=== PATIENT | female | born 1990 | race Caucasian/White ===

== ENCOUNTER 2019-09-27 04:53 | Inpatient (IN) ==
--- OUTSIDE RECORDS SUMMARY | 2019-09-27 04:59 | External Medical Summary | Continuity of Care Document ---
:1990 Author Name Aydin Amin Address Unavailable Unavailable , Care Team Providers Name Role Phone Unavailable Unavailable Unavailable GENI Amin, S Unavailable Unavailable Unavailable Unavailable Unavailable Problems Vaginitis (616.10) (N76.0) Allergies and Adverse Reactions No Known Drug Allergies (Allergy) Medications No Reported Medications , M.D. Refills: 0 Procedures History of Tonsillectomy Status: Complet ed Immunizations Immunizations not documented Social History - Smoking Status Never smoker Plan of Treatment Planned Observations Planned Goals not documented Results No Known Results Results not documented
[2019-09-27] MEDS ORDERED: OXYTOCIN 30 UNITS/500 ML BAG IV PRN ×2 (05:10→16:55)
[2019-09-27] MEDS ORDERED: PENICILLIN G POTASSIUM 6 MU in DEXTROSE 5% 250 ML IV STA (05:10)
[2019-09-27 05:42] LABS: Hemoglobin 12.1 g/dL (12.0-16.0); Mean Corpuscular Hemoglobin 26.7 pg (25-34); Mean Corpuscular Volume 79.3 fL (80-100); Mean Platelet Volume 11.5 fL (7.4-10.4); Platelet Count 204 K/uL (130-400); RDW Standard Deviation 39.9 fL (36.4-46.3); Red Blood Count 4.54 M/uL (4.2-5.4)
[2019-09-27 05:46] LABS: Mean Corpuscular Hgb Conc 33.6 g/dL (32-36)
[2019-09-27] MEDS: LACTATED RINGER'S 1,000 ML IV PRN ×3 (05:58→13:05)
[2019-09-27] MEDS ORDERED: BUPIVACAINE 0.25% 30 ML VIAL ONE (06:20)
[2019-09-27] MEDS ORDERED: ePHEDrine sulfate 50 MG/ML AMP ONE (06:20)
[2019-09-27] MEDS ORDERED: fentaNYL citrate 100 MCG/2 ML VIAL ONE (06:20)
[2019-09-27] MEDS ORDERED: fentaNYL 2MCG/ML ROPIV 1.25MG/ML 100 ML BAG EPI ONE (06:21)
--- NOTE | 2019-09-27 06:27 | Obstetrical Progress Note ---
Date of Service September 27, 2019 Physical Exam Physical Exam: Admit Note 29 F P1001 at 40.6 weeks admitted in active labor. SROM clear fluid this AM. Cervix 5/80/-2/vertex. GBS is positive. Patient requesting epidural Results & Data Vital Signs (Past 12 Hours) Vital Signs Temp Pulse Resp BP 09/27/19 05:16 36.6 C 100 H 18 133/73 09/27/19 05:04 100 H 133/73
--- NOTE | 2019-09-27 06:40 | Anesthesiology Consultation ---
Date of Service September 27, 2019 Assessment & Plan Chart Review Chart Review: Acceptable Risk for Labor Epidural ASA ASA2 Proposed Anesthesia Anesthesia Type: Labor Epidural Risk / Benefits Reviewed With: PT / POA / Parent / Guardian, Accepts Plan and Informed Consent Obtained History Height/Weight Height: 4 ft 11 in Weight: 89.811 kg Allergies Allergy/AdvReac Type Severity Reaction Status Date / Time No Known Allergies Allergy Verified 09/27/19 05:12 Medications Home Medications Medication Instructions Recorded Confirmed Last Taken PNV cmb#95-ferrous fumarate-FA 1 tab PO DAILY #0 tab 11/09/13 09/27/19 09/26/19 10:00 [] Active Medications Generic Name Dose Route Start Last Admin Trade Name Freq PRN Reason Stop Dose Admin Lactated Ringer's 1,000 mls @ 125 mls/hr 09/27/19 05:10 09/27/19 07:05 Lr IV 09/29/19 05:09 125 mls/hr .Q8H PRN Administration L&D Protocol Protocol Past Surgical History Surgical History History of tonsillectomy 1997 [place] teeth extracted 2009 Social History Smoking Status: Former smoker tobacco type: cigarettes Do You Dip or Chew Tobacco: No Smoking End Date: 1.5 years ago Hx Alcohol Use: No Hx Substance Use: No substance use type: does not use Review of Systems denies fever/cough/ colds/ chest pain/ SOB/ GONZALES denies WA/CVA/Seizure Physical Exam Vital Signs Last Vital Signs Temp 36.6 C 09/27/19 05:16 Pulse 114 H 09/27/19 07:06 Resp 18 09/27/19 05:16 BP 129/70 09/27/19 07:06 Pulse Ox 100 09/27/19 07:04 Testing Laboratory Results 09/27/19 05:29
[2019-09-27] MEDS ORDERED: NALOXONE HCL 0.4 MG/1 ML VIAL/CARP IV PRN (07:15)
[2019-09-27] MEDS ORDERED: NALBUPHINE HCL INJ 10 MG/ML AMP IV PRN (07:15)
[2019-09-27] MEDS ORDERED: DiphenhydrAMINE HCL 50 MG/ML VIAL IV PRN (07:15)
[2019-09-27] MEDS ORDERED: ePHEDrine sulfate 50 MG/ML AMP IV PRN (07:15)
[2019-09-27] MEDS ORDERED: ONDANSETRON INJ 2 MG/ML 2 ML VIAL IV PRN (07:15)
[2019-09-27] MEDS ORDERED: fentaNYL 2MCG/ML ROPIV 1.25MG/ML 100 ML BAG EPI PRN (07:15)
[2019-09-27] MEDS ORDERED: NALOXONE HCL 1 MG in SODIUM CHLORIDE 0.9% 1000ML 1,000 ML IV PRN (07:15)
[2019-09-27] MEDS: PENICILLIN G POTASSIUM 3 MU in DEXTROSE 5% 100 ML IV SCH ×2 (10:00→13:36)
[2019-09-27] MEDS ORDERED: METHYLERGONOVINE MALEATE 0.2 MG/ML AMP ONE (16:48)
[2019-09-27] MEDS ORDERED: miSOPROStoL 200 MCG TAB ONE (16:49)
[2019-09-27] MEDS ORDERED: BENZOCAINE 20% AER SPR 82.5 GM CAN EXT PRN (16:55)
[2019-09-27] MEDS ORDERED: bisacodyL 10 MG SUPP PR PRN (16:55)
[2019-09-27] MEDS ORDERED: ACETAMINOPHEN 325 MG TAB PO PRN (16:55)
[2019-09-27] MEDS ORDERED: miSOPROStoL 200 MCG TAB PR ONE (16:55)
[2019-09-27] MEDS ORDERED: HYDROCORTISONE ACETATE 25 MG SUPP PR PRN (16:55)
[2019-09-27] MEDS ORDERED: SUPERCREAM 0.870% 15 GM JAR EXT PRN (16:55)
[2019-09-27] MEDS ORDERED: METHYLERGONOVINE MALEATE 0.2 MG/ML AMP IM ONE (16:55)
[2019-09-27] MEDS ORDERED: DIPHTHERIA/TETANUS/PERTUSSIS 0.5 ML SYR/VIAL IM ONE (16:55)
--- NOTE | 2019-09-27 16:59 | Obstetrical Progress Note ---
Date of Service September 27, 2019 Subjective Delivery Note dictated Results & Data Vital Signs (Past 12 Hours) Vital Signs Temp Pulse Resp BP Pulse Ox 09/27/19 16:57 108 H 97 09/27/19 16:54 100 H 130/63 09/27/19 16:45 120 H 131/61 09/27/19 16:44 122 H 92 09/27/19 16:39 122 H 99 09/27/19 16:34 155 H 73 L 09/27/19 16:30 159 H 91 09/27/19 16:29 168 H 98 09/27/19 16:25 154 H 87 L 09/27/19 16:24 160 H 98 09/27/19 16:19 142 H 84 L 09/27/19 16:14 154 H 97 09/27/19 16:11 137 H 137/81 09/27/19 16:09 154 H 97 09/27/19 16:06 155 H 94 09/27/19 16:04 140 H 96 09/27/19 16:00 37.5 C 167 H 20 93 09/27/19 15:59 143 H 95 09/27/19 15:58 142 H 141/86 H 09/27/19 15:55 141 H 92 09/27/19 15:54 141 H 96 09/27/19 15:49 158 H 97 09/27/19 15:48 151 H 93 09/27/19 15:44 149 H 97 09/27/19 15:43 130 H 130/78 93 09/27/19 15:39 161 H 96 09/27/19 15:38 146 H 94 09/27/19 15:34 141 H 96 09/27/19 15:30 20 09/27/19 15:29 131 H 97 09/27/19 15:27 134 H 114/56 L 09/27/19 15:24 124 H 96 09/27/19 15:20 152 H 93 09/27/19 15:19 134 H 97 09/27/19 15:14 138 H 98 09/27/19 15:12 131 H 144/82 H 09/27/19 15:09 143 H 97 09/27/19 15:04 126 H 98 09/27/19 15:00 20 09/27/19 14:59 163 H 98 09/27/19 14:56 141 H 124/58 L 09/27/19 14:54 157 H 96 09/27/19 14:49 135 H 97 09/27/19 14:44 127 H 97 09/27/19 14:42 134 H 127/64 09/27/19 14:39 121 H 97 09/27/19 14:34 114 H 97 09/27/19 14:30 37.3 C 20 09/27/19 14:29 116 H 98 09/27/19 14:28 127 H 126/59 L 09/27/19 14:24 147 H 97 09/27/19 14:19 124 H 96 09/27/19 14:14 119 H 98 09/27/19 14:11 130 H 133/68 09/27/19 14:09 143 H 98 09/27/19 14:04 130 H 98 09/27/19 14:00 20 09/27/19 13:59 116 H 99 09/27/19 13:56 123 H 134/68 09/27/19 13:54 123 H 100 09/27/19 13:49 134 H 98 09/27/19 13:44 124 H 99 09/27/19 13:42 118 H 128/65 09/27/19 13:39 120 H 98 09/27/19 13:34 125 H 99 09/27/19 13:30 37.6 C H 20 09/27/19 13:29 127 H 100 09/27/19 13:27 134 H 128/69 09/27/19 13:24 145 H 100 09/27/19 13:19 127 H 100 09/27/19 13:14 114 H 99 09/27/19 13:13 115 H 125/63 09/27/19 13:09 131 H 100 09/27/19 13:04 128 H 100 09/27/19 13:00 20 09/27/19 12:59 139 H 100 09/27/19 12:58 136 H 127/60 09/27/19 12:55 132 H 94 09/27/19 12:54 131 H 98 09/27/19 12:49 132 H 99 09/27/19 12:44 136 H 100 09/27/19 12:42 139 H 109/59 L 09/27/19 12:39 140 H 100 09/27/19 12:34 162 H 100 09/27/19 12:30 37.2 C 20 09/27/19 12:29 184 H 100 09/27/19 12:26 122 H 127/69 09/27/19 12:24 124 H 100 09/27/19 12:19 122 H 100 09/27/19 12:14 109 H 127/66 100 09/27/19 12:09 126 H 100 09/27/19 12:04 114 H 100 09/27/19 12:00 18 09/27/19 11:59 113 H 100 09/27/19 11:58 121 H 119/71 09/27/19 11:54 113 H 99 09/27/19 11:49 124 H 100 09/27/19 11:44 116 H 100 09/27/19 11:41 123 H 128/66 09/27/19 11:39 134 H 100 09/27/19 11:34 113 H 100 09/27/19 11:30 20 09/27/19 11:29 115 H 100 09/27/19 11:26 112 H 125/72 09/27/19 11:24 120 H 100 09/27/19 11:19 125 H 100 09/27/19 11:16 112 H 123/72 09/27/19 11:14 109 H 125/71 100 09/27/19 11:09 118 H 100 09/27/19 11:04 116 H 100 09/27/19 11:00 37.2 C 09/27/19 10:59 112 H 100 09/27/19 10:57 120 H 132/60 09/27/19 10:54 115 H 100 09/27/19 10:49 121 H 100 09/27/19 10:44 136 H 100 09/27/19 10:41 112 H 130/74 09/27/19 10:39 117 H 100 09/27/19 10:38 111 H 90 09/27/19 10:34 122 H 100 09/27/19 10:30 09/27/19 10:29 125 H 100 09/27/19 10:26 122 H 128/65 09/27/19 10:24 134 H 100 09/27/19 10:19 137 H 99 09/27/19 10:14 130 H 100 09/27/19 10:12 131 H 141/66 H 01/09/20 10:09 124 H 99 09/27/19 10:04 119 H 100 09/27/19 10:00 20 09/27/19 09:59 118 H 99 09/27/19 09:57 122 H 114/72 09/27/19 09:54 123 H 99 09/27/19 09:49 114 H 99 09/27/19 09:44 106 H 99 09/27/19 09:42 105 H 107/61 09/27/19 09:39 94 H 99 09/27/19 09:34 94 H 100 09/27/19 09:30 20 09/27/19 09:29 101 H 99 09/27/19 09:27 95 H 107/55 L 92 09/27/19 09:24 101 H 99 09/27/19 09:19 100 H 100 09/27/19 09:14 107 H 99 09/27/19 09:13 109 H 102/59 L 91 09/27/19 09:09 109 H 100 09/27/19 09:04 112 H 100 09/27/19 09:00 37.2 C 20 09/27/19 08:59 117 H 100 09/27/19 08:57 102 H 121/69 09/27/19 08:54 103 H 100 09/27/19 08:49 102 H 100 09/27/19 08:47 101 H 85 L 09/27/19 08:44 96 H 100 09/27/19 08:41 123 H 113/74 09/27/19 08:39 100 H 100 09/27/19 08:34 124 H 100 09/27/19 08:30 18 09/27/19 08:29 125 H 100 09/27/19 08:28 114 H 112/69 09/27/19 08:26 106 H 89 L 09/27/19 08:24 126 H 100 09/27/19 08:19 121 H 100 09/27/19 08:14 140 H 100 09/27/19 08:11 136 H 107/71 09/27/19 08:09 122 H 100 09/27/19 08:04 108 H 100 09/27/19 07:59 109 H 100 09/27/19 07:57 139 H 110/68 09/27/19 07:54 138 H 100 09/27/19 07:49 110 H 100 09/27/19 07:44 123 H 100 09/27/19 07:41 120 H 117/62 09/27/19 07:39 126 H 100 09/27/19 07:37 130 H 134/76 09/27/19 07:34 128 H 100 09/27/19 07:31 148 H 118/65 09/27/19 07:30 20 09/27/19 07:29 128 H 100 09/27/19 07:28 120 H 126/74 09/27/19 07:24 117 H 100 09/27/19 07:22 133 H 119/67 09/27/19 07:20 36.9 C 20 09/27/19 07:19 130 H 100 09/27/19 07:17 113 H 119/71 09/27/19 07:14 115 H 100 09/27/19 07:12 105 H 121/62 09/27/19 07:09 122 H 100 09/27/19 07:06 114 H 129/70 09/27/19 07:04 122 H 121/70 100 09/27/19 07:02 134 H 125/77 09/27/19 07:00 120 H 124/71 09/27/19 06:59 121 H 100 09/27/19 06:57 120 H 132/81 09/27/19 06:54 120 H 90 09/27/19 06:49 125 H 77 L 09/27/19 05:16 36.6 C 100 H 18 133/73 09/27/19 05:04 100 H 133/73
--- NOTE | 2019-09-27 18:53 | Anesthesia Procedure Note ---
Date of Service September 27, 2019 Anesthesia Post Epidural Note Vital Signs Vital Signs: Temp Pulse Resp BP Pulse Ox 37.6 C H 85 20 138/65 84 L 09/27/19 16:54 09/27/19 18:39 09/27/19 18:24 09/27/19 18:39 09/27/19 17:28 Pain Intensity Abdomen: Pain Intensity: 2 Notes Mental Status: alert / awake / arousable and participated in evaluation Patient Amnestic to Procedure: Yes Nausea / Vomiting: adequately controlled Pain: adequately controlled Airway Patency, RR, SpO2: stable & adequate BP & HR: stable & adequate Hydration State: stable & adequate Anesthetic Complications: no major complications apparent and Pt Satisfied with anesthetic care
[2019-09-27] MEDS ORDERED: DOCUSATE SODIUM 100 MG CAP PO SCH (21:00)
--- NOTE | 2019-09-28 02:36 | Delivery Summary ---
DATE OF OPERATION: 09/27/2019 DELIVERY NOTE The patient delivered a live in left occiput anterior presentation. There was no nuchal cord. was delivered, placed on mother's abdomen. Cord was clamped and cut after 1 minute. Cord blood was obtained. There was terminal meconium. Placenta spontaneously delivered. Inspection of the perineum showed bilateral labial edema, no laceration or tears are noted. ESTIMATED BLOOD LOSS: 400. All instruments were removed from the vagina including retractors, and sponges were accounted for x2. The patient is stable in recovery. I attest to the content of the Intraoperative Record and any orders documented therein. Any exception s are noted below.
[2019-09-28] MEDS: IBUPROFEN 600 MG TAB PO PRN ×3 (07:28→15:25)
[2019-09-28 07:29] LABS: Hematocrit (blood only) 32.8 % (37-47); Hemoglobin 10.8 g/dL (12.0-16.0); Mean Corpuscular Hemoglobin 26.3 pg (25-34); Mean Corpuscular Hgb Conc 32.9 g/dL (32-36); Mean Corpuscular Volume 79.8 fL (80-100); Platelet Count 182 K/uL (130-400); RDW Coefficient of Variation 14.4 % (11.5-14.5); RDW Standard Deviation 41.4 fL (36.4-46.3); Red Blood Count 4.11 M/uL (4.2-5.4); White Blood Count 18.89 K/uL (4.8-10.8)
[2019-09-28] MEDS ORDERED: FERROUS SULFATE 325 MG TAB PO SCH (08:00)
[2019-09-28] MEDS ORDERED: PRENATAL VITAMIN 1 TAB PO SCH (08:00)
--- NOTE | 2019-09-28 10:37 | Obstetrical Progress Note ---
Date of Service September 28, 2019 Subjective doing well passing gas tolerating diet Physical Exam Constitutional: WD/WN, vitals as above comfortable abdomen soft non- tender fundus firm no edema neg Papo's for discharge Results & Data Vital Signs (Past 12 Hours) Vital Signs Temp Pulse Resp BP BP Pulse Ox 09/28/19 05:45 117/73 09/28/19 04:20 36.7 C 67 18 84/50 L 97 09/27/19 23:15 36.7 C 67 18 119/76 97 Laboratory Results Laboratory Results - last 48 hr 09/27/19 09/28/19 05:29 07:19 WBC 14.00 H 18.89 H RBC 4.54 4.11 L Hgb 12.1 10.8 L Hct 36.0 L 32.8 L MCV 79.3 L 79.8 L MCH 26.7 26.3 MCHC 33.6 32.9 RDW Std Deviation 39.9 41.4 RDW Coeff of Elly 14.0 14.4 Plt Count 204 182 MPV 11.5 H 11.0 H
[2019-09-28] MEDS ORDERED: bisacodyL 5 MG TABEC PO SCH (20:00)
== END 2019-09-28 18:15 | disposition home or self-care (01) | DRG 807 ==
LOC: OPB 04:53 → 4S1 04:55 → 4S2 20:00

== ENCOUNTER 2021-03-11 23:55 | Observation (INO) ==
[2021-03-12] MEDS ORDERED: SODIUM CHLORIDE 0.9% 1000ML 1,000 ML IV ONE (00:08)
[2021-03-12] MEDS ORDERED: MoRPHine SULFATE 10 MG/ML CARP/VIAL IV STA (00:08)
[2021-03-12] MEDS ORDERED: ONDANSETRON INJ 2 MG/ML 2 ML VIAL IV STA (00:08)
--- NOTE | 2021-03-12 00:12 | Emergency Department Note ---
Impression & Plan Acute cholecystitis ED Provider Note Name: LIZZIE DOW Age: 30 Sex: F Arrives Via: Walk-In Informant: Patient ED Provider: Gavin Roberson MD Chief Complaint: Epigastric Pain Impression: Acute Cholecystitis Medical Decision Makin yr old healthy female with 12 hours acute epigastric pain radiating RUQ and some to back. Labs with mild WBC elevation otherwise OK. US obtained which reveals gallstones in neck with mildly distended gallbladder. No edema though despite feeling much better with morphine, she still has considerable TTP. Consistent with early cholecystitis and gen surg consulted who will admit and likely OR later today. pre-op and abx by surg team. Patient comfortable and agrees with plan. Symptoms are not consistent with ACS, PE, Dissection, nor does she have overt peritonitis on abdominal exam at this time. Of note, patient with positive covid pcr test. She is asymptomatic for covid. Her had covid in October at which time she did test negative, but it would be reasonable assume she was infected at that point. Will continue with covid precautions. Prior Medical Record and Triage/Nursing Notes reviewed by Me Differentials:Cholecystitis, Obstructing bile stone, liver pathology, thromb osis, renal colic, pud/gastritis, acs, aortic pathology, pe amongst other pathologies. Vital Signs: reviewed and remarkable for no significant abnormalities Interventions: saline lock, nss bolus, morphine 6mg iv, zofran 4mg iv Labs:Reviewed and remarkable for mild wbc elevation Imaging: [facility] Radiologist interpretation reviewed by me: "US RUQ: Few stones within the gallbladder neck. Gallbladder mildly distended. No wall thickening or pericholecystic fluid. Negative sonographic Anand sign. No biliary dilatation. Small cyst within the left hepatic lobe measuring 1.3 cm. Right kidney unremarkable. Radiologist: Gerry Jageer MD" Consults:Isidro Connolly PA-C Plan: Disposition:Hospitalization. Condition: Good History of Present Illness:30 yr old female arrives for evaluation of epigastric pain. Patient notes rapidly worsening epigastric pain since eating a chicken wrap for lunch. Worsening pain and nausea. No vomiting. Radiation to RUQ and mild posterior back discomfort. No fevers, chills, syncope, headache, cp, sob, leg swelling, rashes, urinary/bowel changes, nor other symptoms. No tr auma/injury. Eating makes worse, rest makes better. Motrin previously without improvement though no medications prior to arrival. She notes that she has had periodic episodes like this that resolve on their own without previous medical work up for it. No previous abdominal surgeries. No fam history GB disease. ROS: See above HPI for pertinent positives & negatives. A total of 10 systems reviewed and were otherwise negative. Past Medical History:None Past Surgical History:tonsillectomy, wisdom teeth Family History:Healthy Social History: with 2 children, no drugs/tobacco Home Medications:None Allergies:NKDA Vitals:Blood Pressure: 123/74, Pulse 86, RR 16, T 36.6C, O2 94% on RA Physical Exam: GENERAL: Patient is anxious appearing and in moderate distress. EYES: No scleral icterus, unremarkable pupils. ENT: Mucous membranes moist, no nasal congestion. NECK: No masses appreciated, nomeningismus, trachea is midline. RESPIRATORY: No dyspnea. Clear to auscultation and equal bilaterally. No wheeze, no rhonchi. CARDIOVASCULAR: Regular rate and rhythm.No murmurs, rubs, gallops appreciated. GASTROINTESTINAL: Epigastric and RUQ TTP, otherwise abdomen soft, non-tender, no peritonitis.Bowel sounds positive.No masses appreciated. BACK: No midline tenderness, no CVA tenderness EXTREMITIES: Normal motion all extremities, no cyanosis, no edema. NEUROLOGIC: Alert and oriented, no acute motor or sensory deficits, no focal weakness, cranial nerves grossly intact. SKIN: No rash, no jaundice, no diaphoresis. PSYCH: Appropriate GCS: 15 ED Course: Times/Reassessments: stable, feeling better though still with TTP epigastrium Gavin Roberson MD Past Med/Surg History Surgical History History of tonsillectomy 1997 [place] teeth extracted 2009 Social History Smoking Status: Never smoker Second Hand Exposure: No; Hx Alcohol Use: No Hx Substance Use: No Preferred Language: Malian Communication Ability: Effective [employer] Required: No Beliefs That Will Affect Care: None marital status: Current Living Situation: Spouse and Family Feels Safe at Home: Yes Assistive Devices: None Allergies Allergies Allergy/AdvReac Type Severity Reaction Status Date / Time No Known Allergies Allergy Verified 03/12/21 00:04 Home Meds Home Medications Medication Instructions Recorded Confirmed No Known Home Medications 03/12/21 03/12/21 Results & Data (ED) Vital Signs Vital Signs - 24 hr 03/11/21 23:58 03/12/21 01:45 03/12/21 03:00 Temperature 36.6 C Temperature Source Temporal Artery Scan Pulse Rate 86 Pulse Rate [Right Finger] 68 68 Respiratory Rate 16 18 18 Blood Pressure 123/74 Blood Pressure [Right Arm] 112/58 L 100/64 Blood Pressure Mean 90 Blood Pressure Mean [Right Arm] 76 76 Pulse Oximetry 94 97 97 Oxygen Delivery Method Room Air Sepsis Recent Fever Within 48 Hours No Sepsis New/Unexplained Change in Mental Status No Sepsis Action Taken by Nursing No Action Required 03/12/21 05:00 Temperature Temperature Source Pulse Rate Pulse Rate [Right Finger] 70 Respiratory Rate 18 Blood Pressure Blood Pressure [Right Arm] 98/68 L Blood Pressure Mean Blood Pressure Mean [Right Arm] 78 Pulse Oximetry 97 Oxygen Delivery Method Room Air Sepsis Recent Fever Within 48 Hours Sepsis New/Unexplained Change in Mental Status Sepsis Action Taken by Nursing Laboratory Data Result diagrams: 03/12/21 00:24 03/12/21 00:24 Lab Results 03/12/21 03/12/21 03/12/21 Range/Units 00:20 00:20 00:24 WBC (4.8-10.8) K/uL RBC (4.2-5.4) M/uL Hgb (12.0-16.0) g/dL Hct (37-47) % MCV (80-100) fL MCH (25-34) pg MCHC (32-36) g/dL RDW Std Deviation (36.4-46.3) fL RDW Coeff of Elly (11.5-14.5) % Plt Count (130-400) K/uL MPV (7.4-10.4) fL Immature Gran % (Auto) % Neut % (Auto) % Lymph % (Auto) % [place] % (Auto) % Eos % (Auto) % Baso % (Auto) % Neut # (Auto) (1.4-6.5) K/uL Lymph # (Auto) (1.2-3.4) K/uL [place] # (Auto) (0.11-0.59) K/uL Eos # (Auto) (0-0.5) K/uL Baso # (Auto) (0-0.2) K/uL Immature Gran # (Auto) (0.00-0.02) K/uL Sodium 141 (136-145) mmol/L Potassium 3.8 (3.5-5.1) mmol/L Chloride 109 H (98-107) mmol/L Carbon Dioxide 28 (21-32) mmol/L Anion Gap 4.0 (3-11) BUN 8 (7-18) mg/dl Creatinine 0.83 (0.6-1.2) mg/dl Est Cr Clr Drug Dosing 92.7 ml/min Est GFR ( Amer) 111.2 ml/min Est GFR (Non-Af Amer) 96.0 ml/min BUN/Creatinine Ratio 9.0 L (10-20) Glucose 89 (70-99) mg/dl Calcium 8.5 (8.5-10.1) mg/dl Total Bilirubin 0.3 (0.2-1) mg/dl Direct Bilirubin 0.1 (0-0.2) mg/dl AST 11 L (15-37) U/L ALT 22 (12-78) U/L Alkaline Phosphatase 66 (45-117) U/L Total Protein 7.6 (6.4-8.2) gm/dl Albumin 4.2 (3.4-5.0) gm/dl Lipase 257 (73-393) U/L Urine Color Yellow Urine Appearance Clear (Clear) Urine pH 7.5 (4.5-7.5) Ur Specific [place] 1.012 (1.000-1.030) Urine Protein Negative (Negative) Urine Glucose (UA) Negative (Negative) Urine Ketones Trace H (Negative) Urine Blood Negative (Negative) Urine Nitrite Negative (Negative) Urine Bilirubin Negative (Negative) Urine Urobilinogen Negative (Negative) Ur Leukocyte Esterase 1+ H (Negative) Urine WBC (Auto) 10-30 H (0-5) /hpf Urine RBC (Auto) 0-4 (0-4) /hpf U Hyaline Cast (Auto) 1-5 (0-5) /lpf U Epithel Cells (Auto) >30 H (0-5) /lpf Urine Bacteria (Auto) 1+ H (Negative) Urine Test Negative (Negative) COVID-19 Eval Order SARS-CoV-2 (PCR) (Negative) 03/12/21 03/12/21 03/12/21 Range/Units 00:24 03:00 03:00 WBC 12.08 H (4.8-10.8) K/uL RBC 5.10 (4.2-5.4) M/uL Hgb 14.7 (12.0-16.0) g/dL Hct 42.6 (37-47) % MCV 83.5 (80-100) fL MCH 28.8 (25-34) pg MCHC 34.5 (32-36) g/dL RDW Std Deviation 40.8 (36.4-46.3) fL RDW Coeff of Elly 13.4 (11.5-14.5) % Plt Count 264 (130-400) K/uL MPV 9.9 (7.4-10.4) fL Immature Gran % (Auto) 0.2 % Neut % (Auto) 66.3 % Lymph % (Auto) 24.9 % [place] % (Auto) 5.9 % Eos % (Auto) 2.5 % Baso % (Auto) 0.2 % Neut # (Auto) 8.00 H (1.4-6.5) K/uL Lymph # (Auto) 3.01 (1.2-3.4) K/uL [place] # (Auto) 0.71 H (0.11-0.59) K/uL Eos # (Auto) 0.30 (0-0.5) K/uL Baso # (Auto) 0.03 (0-0.2) K/uL Immature Gran # (Auto) 0.03 H (0.00-0.02) K/uL Sodium (136-145) mmol/L Potassium (3.5-5.1) mmol/L Chloride (98-107) mmol/L Carbon Dioxide (21-32) mmol/L Anion Gap (3-11) BUN (7-18) mg/dl Creatinine (0.6-1.2) mg/dl Est Cr Clr Drug Dosing ml/min Est GFR ( Amer) ml/min Est GFR (Non-Af Amer) ml/min BUN/Creatinine Ratio (10-20) Glucose (70-99) mg/dl Calcium (8.5-10.1) mg/dl Total Bilirubin (0.2-1) mg/dl Direct Bilirubin (0-0.2) mg/dl AST (15-37) U/L ALT (12-78) U/L Alkaline Phosphatase (45-117) U/L Total Protein (6.4-8.2) gm/dl Albumin (3.4-5.0) gm/dl Lipase (73-393) U/L Urine Color Urine Appearance (Clear) Urine pH (4.5-7.5) Ur Specific [place] (1.000-1.030) Urine Protein (Negative) Urine Glucose (UA) (Negative) Urine Ketones (Negative) Urine Blood (Negative) Urine Nitrite (Negative) Urine Bilirubin (Negative) Urine Urobilinogen (Negative) Ur Leukocyte Esterase (Negative) Urine WBC (Auto) (0-5) /hpf Urine RBC (Auto) (0-4) /hpf U Hyaline Cast (Auto) (0-5) /lpf U Epithel Cells (Auto) (0-5) /lpf Urine Bacteria (Auto) (Negative) Urine Test (Negative) COVID-19 Eval Order Covid19 at [facility] SARS-CoV-2 (PCR) POSITIVE A* (Negative) Administered Medications Discontinued Medications Sodium Chloride (Nss 1000ml) 1,000 mls @ 999 mls/hr IV .[id number] ONE Stop: 03/12/21 01:08 Last Infusion: 03/12/21 01:43 Dose: 0 mls/hr Documented by: [id number] Admin: 03/12/21 00:25 Dose: 999 mls/hr Documented by: [id number] Cefoxitin Sodium (Mefoxin) 2,000 mg in 60 mls @ 100 mls/hr IV NOW STA Stop: 03/12/21 03:12 Last Infusion: 03/12/21 04:21 Dose: 0 mls/hr Documented by: [id number] Admin: 03/12/21 03:25 Dose: 100 mls/hr Documented by: [id number] Morphine Sulfate (Morphine Sulfate 10 Mg/Ml Carp/Vial) 6 mg IV NOW STA Stop: 03/12/21 00:09 Last Admin: 03/12/21 00:33 Dose: 6 mg Documented by: [id number] Ondansetron HCl (Ondansetron Inj 2 Mg/Ml 2 Ml Vial) 4 mg IV NOW STA Stop: 03/12/21 00:09 Last Admin: 03/12/21 00:33 Dose: 4 mg Documented by: [id number] Discharge Plan Visit Data Chief Complaint: Abdominal Pain Stated Complaint: SUSPECTED GALBLADDER ATTACK,SEVERE ABD PAIN ED Provider: Gavin Roberson Discharge Problem: Acute cholecystitis Forms Stand Alone Forms: [employer] Prescriptions Prescriptions: No Action No Known Home Medications RF: 0
[2021-03-12 00:35] LABS: Basophils # (auto) 0.03 K/uL (0-0.2); Basophils % (auto) 0.2 %; Eosinophils % (auto) 2.5 %; Hematocrit (blood only) 42.6 % (37-47); Hemoglobin 14.7 g/dL (12.0-16.0); Immature Granulocytes # (auto) 0.03 K/uL (0.00-0.02); Immature Granulocytes % (auto) 0.2 %; Lymphocytes # (auto) 3.01 K/uL (1.2-3.4); Lymphocytes % (auto) 24.9 %; Mean Corpuscular Hemoglobin 28.8 pg (25-34); Mean Corpuscular Hgb Conc 34.5 g/dL (32-36); Mean Corpuscular Volume 83.5 fL (80-100); Mean Platelet Volume 9.9 fL (7.4-10.4); Monocytes # (auto) 0.71 K/uL (0.11-0.59); Monocytes % (auto) 5.9 %; Neutrophils % (auto) 66.3 %; Platelet Count 264 K/uL (130-400); RDW Coefficient of Variation 13.4 % (11.5-14.5); RDW Standard Deviation 40.8 fL (36.4-46.3); White Blood Count 12.08 K/uL (4.8-10.8)
[2021-03-12 00:40] LABS: Appearance Urine Clear (Clear); Bacteria Urine Automated 1+ (Negative); Bilirubin Urine Negative (Negative); Blood Urine Negative (Negative); Color Urine Yellow; Epithelial Cell Urine Auto >30 /lpf (0-5); Glucose Urine UA Negative (Negative); Ketones Urine Trace (Negative); Leukocyte Esterase Urine 1+ (Negative); Nitrite Urine Negative (Negative); Pregnancy Test, Urine Negative (Negative); Protein Urine Negative (Negative); RBC Urine Automated 0-4 /hpf (0-4); Specific Gravity Urine 1.012 (1.000-1.030); Urobilinogen Urine Negative (Negative); pH Urine 7.5 (4.5-7.5)
[2021-03-12 00:53] LABS: Albumin Level 4.2 gm/dl (3.4-5.0); Bilirubin Direct 0.1 mg/dl (0-0.2); Calcium 8.5 mg/dl (8.5-10.1); Creatinine Clr Calc Pharmacy 92.7 ml/min; Est GFR (African American) 111.2 ml/min; Potassium 3.8 mmol/L (3.5-5.1)
[2021-03-12 00:55] LABS: Bilirubin,Total 0.3 mg/dl (0.2-1); Total Protein 7.6 gm/dl (6.4-8.2)
[2021-03-12] MEDS ORDERED: cefOXitin 2,000 MG/60 ML BAG IV STA (02:37)
--- NOTE | 2021-03-12 02:38 | History & Physical Report ---
Date of Service March 12, 2021 Assessment & Plan (1) Cholelithiasis: I suspect the patient's abdominal pain is related to cholelithiasis particularly since by ultrasound several gallstones are noted to be in the gallbladder neck. We will therefore admit to the patient to the hospital and proceed as follows: Provide analgesics Provide antiemetics We will administer antibiotics in the form of Mefoxin Hydration with IV fluids We will keep patient n.p.o. in anticipation for surgery A Covid test will be performed. I have discussed cholecystectomy with the patient and outlined the risks, benefits, and alternatives. She wishes to proceed. Dr. Eulalio Chaves will see the patient later this morning to obtain consent and further discuss surgery. Further recommendations made based on operative findings as well as patient's recovery from surgery SCDs to be utilized for DVT prevention. No chemical means due to anticipated surgery. History of Present Illness Chief Complaint: Cholelithiasis Primary Care Provider: Stoney Coreas This is a 22-year-old female who presented to [facility] emergency department secondary to abdominal pain. Patient notes over the past several weeks she has been having abdominal pain in the epigastric area and right upper quadrant particularly after eating meals. She said that the pain usually self resolves and therefore she did not seek medical attention before today. She did present to the emergency department today as the pain lasted longer and was much more severe with associated nausea vomiting. She denies any fevers, shakes, chills. Patient says she has never had any prior abdominal surgeries. She notes that the pain that does not radiate and she does not know any specific palliative or provocative factors. In the emergency department the patient had labs and imaging which I dependently reviewed. A gallbladder ultrasound showed the patient had several gallstones in the gallbladder neck with a mildly distended gallbladder, although there was no gallbladder wall thickening or pericholecystic fluid. Labs included a CBC where her white blood cell count was elevated at 12,000. Hemoglobin, hematocrit, and platelet count were noted to be within normal range. A chemistry profile showed that her sodium and potassium were normal as were her BUN and creatinine. There were no elevation of her bilirubin or LFTs. Her lipase was noted be normal. Urine test was noted to be negative. A Covid test has been ordered and is pending. Patient did have a urinalysis that showed 10-30 white blood cells per high-power field with 1+ bacteria and 1+ leukocyte esterase. At the time of my interview she is resting in bed in no distress. Allergies Allergy/AdvReac Type Severity Reaction Status Date / Time No Known Allergies Allergy Verified 03/12/21 00:04 Home Medications Medication Instructions Recorded Confirmed Type No Known Home Medications 03/12/21 03/12/21 History Past Med/Surg History Surgical History History of tonsillectomy 1997 [place] teeth extracted 2009 Social History Smoking Status: Current every day smoker Second Hand Exposure: No; Hx Alcohol Use: Yes Alcohol type: beer and wine Hx Substance Use: No Preferred Language: Brazilian Communication Ability: Effective Felt Hat Steamer Required: No Beliefs That Will Affect Care: None marital status: Current Living Situation: Family Other Information That Helps Us Care for You: No Feels Safe at Home: Yes Safety Concerns: Feels Safe At This Time Assistive Devices: None Review of Systems Constitutional: no fever and no chills Eyes: no decreased night vision Ear, Nose, Mouth, Throat: no ear pain Respiratory: no cough and no dyspnea Cardiovascular: no chest pain Gastrointestinal: + abdominal pain, + nausea, + vomiting and + diarrhea/loose stools Genitourinary: no dysuria Musculoskeletal: no back pain Integumentary: no rash Neurologic: no localized weakness Physical Exam 2 Constitutional: well developed and well nourished; no acute distress Eyes: + conjunctival abnormality wears glasses ENMT: Ears: no hearing impairment Neck: trachea midline Respiratory: normal respiratory effort, lungs clear to auscultation Cardiovascular: Rate/Rhythm: regular rate and regular rhythm Gastrointestinal (Abdomen): Abdomen is rotund and soft. There is no rebound tenderness or guarding. The patient did have significant pain with palpation greatest in the right upper quadrant. Anand sign is noted to be positive. Musculoskeletal: no calf tenderness Skin: no rashes, warm and dry Neurologic: moves all extremities Psychiatric: A+Ox3, euthymic affect Results & Data Results & Data ([facility]) Vital Signs (Past 12 Hours) Vital Signs Temp Pulse Pulse Resp BP BP Pulse Ox 03/12/21 01:45 68 18 112/58 L 97 03/11/21 23:58 36.6 C 86 16 123/74 94 Supervising Physician Co-Signing Physician Notes I personally saw and evaluated the patient with Harsh Connolly PA-C and agree with the assessment and plan 30 yo female with acute cholecystitis -Admit to surgery -Keep NPO -To OR for laparoscopic cholecystectomy, possible open, possible IOC -Consent obtained, risks discussed including bleeding, infection, bile leak, ductal injury PG Care Time/CCT Total # of Minutes Spent Total Time Spent with Patient: Total time spent is greater than 50% in coordination of care (as documented) at patient's floor/unit and/or counseling patient: Coding Level of Care Code 54810 OBS Care - Level 3 Diagnoses Cholelithiasis K80.20
[2021-03-12] MEDS ORDERED: ONDANSETRON INJ 2 MG/ML 2 ML VIAL IV PRN ×2 (05:42→14:44)
[2021-03-12] MEDS ORDERED: MoRPHine SULFATE 4 MG/ML 1 ML CARP\\VIAL IV PRN ×2 (05:42→18:23)
[2021-03-12] MEDS ORDERED: ACETAMINOPHEN 1,000 MG/100 ML VIAL IV PRN (05:42)
[2021-03-12] MEDS: LACTATED RINGER'S 1,000 ML IV SCH ×2 (06:15→19:38)
--- NOTE | 2021-03-12 06:58 | Ultrasound Report ---
US gallbladder HISTORY: 30 years-old Female 12 hrs epi/ruq pain s/p eating. Acute right upper quadrant abdominal pa in COMPARISON: CTA of the chest 03/22/2014 TECHNIQUE: Multiple real-time sonographic images of the abdominal right upper quadrant were obtained assessing grayscale appearance and color flow FINDINGS: The visualized pancreas is unremarkable, the tail obscured by bowel gas. 1.3 cm left hepatic lobe cys t. The liver is otherwise unremarkable. Cholelithiasis. Gallbladder is mildly distended measuring up to 10 mm in length. No gallbladder wall thickening or pericholecystic fluid. Negative sonographic Mur phy's sign. Normal common bile duct, 4 mm. Imaged right kidney is unremarkable with mild pelviectasis. IMPRESSION: 1. Mild gallbladder distention with cholelithiasis. There is no gallbladder wall thickening or perich olecystic fluid to suggest acute cholecystitis. 2. No biliary ductal dilation. ACT 112: Negative or not required by law. The above report was generated using voice recognition software. It may contain grammatical, syntax o r spelling errors. Electronically signed by: Ubaldo Kapoor M.D. 03/12/2021 6:57 AM
[2021-03-12 07:13] LABS: Basophils # (auto) 0.03 K/uL (0-0.2); Basophils % (auto) 0.3 %; Eosinophils # (auto) 0.28 K/uL (0-0.5); Eosinophils % (auto) 3.1 %; Hematocrit (blood only) 39.9 % (37-47); Hemoglobin 13.4 g/dL (12.0-16.0); Immature Granulocytes # (auto) 0.02 K/uL (0.00-0.02); Immature Granulocytes % (auto) 0.2 %; Lymphocytes % (auto) 33.6 %; Mean Corpuscular Hemoglobin 28.1 pg (25-34); Mean Corpuscular Volume 83.6 fL (80-100); Mean Platelet Volume 10.1 fL (7.4-10.4); Monocytes # (auto) 0.63 K/uL (0.11-0.59); Monocytes % (auto) 7.1 %; Neutrophils # (auto) 4.96 K/uL (1.4-6.5); Neutrophils % (auto) 55.7 %; Platelet Count 233 K/uL (130-400); RDW Coefficient of Variation 13.4 % (11.5-14.5); RDW Standard Deviation 40.7 fL (36.4-46.3); Red Blood Count 4.77 M/uL (4.2-5.4); White Blood Count 8.92 K/uL (4.8-10.8)
[2021-03-12 07:22] LABS: Mean Corpuscular Hgb Conc 33.6 g/dL (32-36)
[2021-03-12 07:40] LABS: Albumin Level 3.5 gm/dl (3.4-5.0); Calcium 8.2 mg/dl (8.5-10.1); Creatinine Clr Calc Pharmacy 107.9 ml/min; Est GFR (African American) 134.3 ml/min; Est GFR (Non-African American) 115.9 ml/min
[2021-03-12 07:43] LABS: Albumin Globulin Ratio 1.2 (0.9-2); Bilirubin,Total 0.3 mg/dl (0.2-1); Total Protein 6.5 gm/dl (6.4-8.2)
[2021-03-12] MEDS ORDERED: cefOXitin 2,000 MG in DEXTROSE 5% 50 ML IV SCH (10:00)
--- NOTE | 2021-03-12 13:25 | History & Physical Bridge Note ---
Date of Service March 12, 2021 History & Physical Bridge Note I have examined the patient, reviewed the History & Physical and in the interval since the performance of the History & Physical I have noted the following changes of clinical significance: no changes noted
[2021-03-12] MEDS ORDERED: PROMETHAZINE HCL 12.5 MG in SODIUM CHLORIDE 0.9% 50 ML IV PRN (14:44)
[2021-03-12] MEDS ORDERED: HYDROmorphone INJ 2 MG/ML SYR/VIAL IV PRN (14:44)
[2021-03-12] MEDS ORDERED: ePHEDrine sulfate 50 MG/ML AMP IV PRN (14:44)
[2021-03-12] MEDS ORDERED: ATROPINE SULFATE 0.1 MG/ML 10ML SYR IV PRN (14:44)
[2021-03-12] MEDS ORDERED: BUPIVACAINE/EPINEPHRINE 0.5% MPF 1:200,000 30 ML VIAL ONE (15:36)
[2021-03-12] MEDS ORDERED: PROPOFOL IV EMULSION 10 MG/ML 20 ML VIAL IV ONE ×3 (15:45→17:35)
[2021-03-12] MEDS ORDERED: LIDOCAINE 2% 2 ML VIAL/AMP(20MG/ML) INFIL ONE (15:45)
[2021-03-12] MEDS ORDERED: fentaNYL citrate 100 MCG/2 ML VIAL ONE (15:46)
[2021-03-12] MEDS ORDERED: MIDAZOLAM HCL 1 MG/ML 2ML VIAL ONE (15:46)
[2021-03-12] MEDS ORDERED: ROCURONIUM BROMIDE 10 MG/ML 5 ML VIAL IV ONE (15:58)
[2021-03-12] MEDS ORDERED: GLYCOPYRROLATE 0.2 MG/ML VIAL ONE (15:58)
[2021-03-12] MEDS ORDERED: SUCCINYLCHOLINE 100MG/5ML SYR IV ONE (15:58)
[2021-03-12] MEDS ORDERED: DEXAMETHASONE SOD INJ 4 MG/ML VIAL ONE (15:58)
[2021-03-12] MEDS ORDERED: ONDANSETRON INJ 2 MG/ML 2 ML VIAL ONE (15:58)
[2021-03-12] MEDS ORDERED: KETOROLAC 30 MG/ML VIAL ONE (15:58)
[2021-03-12] MEDS ORDERED: NEOSTIGMINE METHYLSULFATE 1 MG/ML 10ML VIAL ONE (15:58)
[2021-03-12] MEDS ORDERED: LARYING-O-JET KIT (LTA) ONE (15:58)
--- NOTE | 2021-03-12 17:01 | Post Operative Brief Note ---
PG Immediate Post Op with CF Date of Surgery March 12, 2021 Pre & Post Diagnosis Operation Date: 03/12/21 10:55 Pre-Op Diagnosis: Acute cholecystitis Post-Op Diagnosis: Acute cholecystitis I identified the patient and participated in the time-out.: Yes Procedure Operation Date: 03/12/21 10:55 Actual Procedures p Laparoscopic Cholecystectomy(Not Applicable) - Eulalio Chaves DO Surgeon Eulalio Chaves DO Inpatient Nursing Aide Roderick Harris PA-C Estimated Blood Loss 5 Findings See Below Mildly inflamed, edematous gallbladder Specimens Specimen Description: Permanent A. Gallbladder and Contents Anesthesia Type General Complications none Disposition Disposition: Recovery Room
--- NOTE | 2021-03-12 17:04 | Operative Report ---
PG Post Operative Report Pre & Post Diagnosis Operation Date: 03/12/21 10:55 Pre-Op Diagnosis: Acute cholecystitis Post-Op Diagnosis: Acute cholecystitis I identified the patient and participated in the time-out.: Yes Procedure Operation Date: 03/12/21 10:55 Actual Procedures p Laparoscopic Cholecystectomy(Not Applicable) - Eulalio Chaves DO Surgeon Eulalio Chaves DO Jewel Inspector Roderick Harris PA-C Estimated Blood Loss 5 Findings See Below Mildly inflamed, edematous gallbladder Fluids see anesthesia record Specimens Gallbladder to pathology Drains None Anesthesia Type General Complications none Disposition Disposition: Recovery Room Indications 30 yo female with acute cholecystitis Description of Procedure The patient was brought to the operating room and placed in the supine position with both arms extended. At this time she underwent general endotracheal anesthesia without any problems. She was given appropriate pre-operative antibiotics. Her abdomen prepped and draped in the usual sterile fashion. A timeout was called, the procedure was verified as Laparoscopic cholecystectomy, possible open, possible intra-operative cholangiogram. Surgical, nursing and anesthesia teams agreed and the procedure was begun. After injection of 0.25% Marcaine with epinephrine, a supraumbilical vertical incision was made and carried down to the fascia using S-retractors. The abdominal wall was then elevated with towel clamps and abdomen entered using the Veress needle confirming position using the saline drop test. Pneumoperitoneum was established. 5mm trocar was placed. Laparoscope was introduced. No injury from entry into the abdomen was visualized after inspection of the abdomen. Three further ports were placed under direct visualization. One 11mm in the subxiphoid region and two 5mm in the RUQ. At this time the abdomen was i nspected and the gallbladder identified. The gallbladder fundus was grasped and retracted cephalad. The gallbladder infundibulum was then grasped and retracted laterally. The gallbladder was mildly inflamed and was edematous. The cystic duct and cystic artery were then identified and skeletonized. The critical view of safety was obtained. They were both then clipped twice proximally and once distally and then divided using scissors. The gallbladder was then taken off of the liver bed using electrocautery and placed in an endocatch bag and removed from the subxiphoid port. The liver bed was then inspected and no bile leak or bleeding was evident. The subxiphoid port was then closed using 0-Vicryl using the suture passer. The trocars were then removed under direct visualization and no bleeding was present. Abdomen was desufflated. The skin was then closed using 4-0 Monocryl in a subcuticular fashion. Surgical glue was applied. Needle and sponge counts were correct x 2. At this time the patient was awoken from anesthesia and extubated having remained stable throughout the entire case. The patient was then transported to PACU in stable condition. The physician promotions assistant sales marketing was present and scrubbed for the entire case. He was essential in positioning, prepping and draping the patient, driving the laparoscope, retraction and exposure, closure of the incisions and placement of the dressings. I attest to the content of the Intraoperative Record and any orders documented therein. Any exceptions are noted below.
[2021-03-12] MEDS: fentaNYL citrate 100 MCG/2 ML VIAL IV PRN ×2 (17:41→17:47)
--- NOTE | 2021-03-12 17:45 | Anesthesiology Progress Note ---
Date of Service March 12, 2021 Anesthesia Post Procedure Vital Signs Vital Signs: Temp Pulse Pulse Pulse Pulse Resp BP 03/12/21 17:40 71 14 03/12/21 17:30 77 13 03/12/21 17:24 36.5 C 81 15 03/12/21 14:09 36.9 C 96 H 18 03/12/21 08:11 36.7 C 74 18 03/12/21 05:45 37.0 C 68 16 03/12/21 05:42 37.0 C 68 16 03/12/21 05:00 70 18 03/12/21 03:00 68 18 03/12/21 01:45 68 18 03/11/21 23:58 36.6 C 86 16 123/74 BP BP Pulse Ox 03/12/21 17:40 123/68 100 03/12/21 17:30 117/80 100 03/12/21 17:24 127/68 100 03/12/21 14:09 126/80 96 03/12/21 08:11 101/66 95 03/12/21 05:45 115/76 97 03/12/21 05:42 115/76 97 03/12/21 05:00 98/68 L 97 03/12/21 03:00 100/64 97 03/12/21 01:45 112/58 L 97 03/11/21 23:58 94 Pain Intensity Abdomen: Pain Intensity: 5 Transfer of Care Handoff Completed per policy Notes Mental Status: alert / awake / arousable Patient Amnestic to Procedure: Yes Nausea / Vomiting: adequately controlled Pain: adequately controlled Airway Patency, RR, SpO2: stable & adequate BP & HR: stable & adequate Hydration State: stable & adequate Anesthetic Complications: no major complications apparent
[2021-03-12] MEDS ORDERED: oxyCODONE HCL IR 5 MG TAB (IMMEDIATE RELEASE) PO PRN (18:23)
[2021-03-12] MEDS: MoRPHine SULFATE 2 MG/ML CARP IV PRN (22:44)
[2021-03-13] MEDS: MoRPHine SULFATE 2 MG/ML CARP IV PRN ×3 (01:09→09:45)
--- NOTE | 2021-03-13 08:52 | Surgery Progress Note ---
Date of Service March 13, 2021 Assessment & Plan (1) Acute cholecystitis: -Advance diet -Pain control PRN -Encourage ambulation/IS -D/C home later if tolerates diet Admission and Anticipated Discharge Date Admission Date: March 12, 2021 Subjective Pt seen and examined. Pain controlled. No acute events overnight. Afebrile. Tolerating clears. No N/V. Physical Exam Constitutional: WD/WN, vitals as above Gastrointestinal (Abdomen): Percussion/Palpation: abdomen soft; abdomen nontender and no guarding Dressings c/d/i Results & Data ([facility]) Vital Signs (Past 12 Hours) Vital Signs Temp Pulse Pulse Resp BP Pulse Ox 03/13/21 07:55 36.9 C 69 16 99/64 L 95 03/13/21 06:09 36.9 C 60 16 90/72 L 98 03/12/21 22:46 36.9 C 80 16 111/71 95 PG Care Time/CCT Total # of Minutes Spent Total Time Spent with Patient: Total time spent is greater than 50% in coordination of care (as documented) at patient's floor/unit and/or counseling patient: Coding Level of Care Code None Diagnoses Acute cholecystitis K81.0
[2021-03-13] MEDS: LACTATED RINGER'S 1,000 ML IV SCH (09:09)
== END 2021-03-13 13:30 | disposition home or self-care (01) ==
LOC: 3N 23:55 → ED 23:55 → 3N 03-12 05:27